=== PATIENT | female | born 1975 | race Two or more races ===

== ENCOUNTER 2019-06-16 10:35 | Observation (INO) | payer SELFPAY ==
[~2019-06-16] VITALS: Ht 165.1 cm; Wt 78.5 kg
[2019-06-16] MEDS ORDERED: PREN-96 PO (12:30)
[2019-06-16] MEDS ORDERED: URSO300C9 PO (12:30)
[2019-06-16 13:57] LABS: Albumin 2.9 g/dL (3.4-5.0); Calcium 9.2 mg/dL (8.5-10.1); Potassium 4.1 mmol/L (3.5-5.1)
[2019-06-16] MEDS ORDERED: LACTATED RINGER'S 1,000 ML IV ONE (14:00)
[2019-06-16 14:02] LABS: BUN/Creatinine Ratio 10.5; Bilirubin, Total 0.4 mg/dL (0.2-1.0); Total Protein 7.4 g/dL (6.4-8.2)
[2019-06-16] MEDS: TERBUTALINE SULFATE 1 MG/ML 1ML VIAL SC SCH ×2 (14:43→15:42)
[2019-06-16] MEDS ORDERED: NIFEdipine 10 MG CAP PO ONE (16:15)
== END 2019-06-16 17:10 | disposition home or self-care (01) | DRG 831 ==
LOC: LDRP 10:35
PROVIDERS: ADMIT Specialist; ATTEND Specialist
DX: O26.613 Liver and biliary tract disorders in pregnancy, third trimester (principal); K83.1 Obstruction of bile duct; Z3A.34 34 weeks gestation of pregnancy
CPT/HCPCS: 36415; 59025; 76818; 80053; 81002; 84112; 96372; G0378; J3105; 96361

== ENCOUNTER 2019-06-18 14:01 | Observation (INO) | payer MEDICAID ==
[~2019-06-18 14:01] MED LIST: PREN-96 PO; URSO300C9 PO
== END 2019-06-18 16:11 | disposition home or self-care (01) | DRG 563 ==
LOC: LDRP 14:01
PROVIDERS: ADMIT Specialist; ATTEND Specialist
DX: O60.03 Preterm labor without delivery, third trimester (principal); K83.1 Obstruction of bile duct; O26.613 Liver and biliary tract disorders in pregnancy, third trimester; O09.523 Supervision of elderly multigravida, third trimester; Z3A.35 35 weeks gestation of pregnancy
CPT/HCPCS: 59025; 76818; 81002; G0378

== ENCOUNTER 2019-06-22 09:17 | Observation (INO) | payer MEDICAID | END 2019-06-22 10:50 | disposition home or self-care (01) | DRG 563 | LOC: LDRP 09:17 | PROVIDERS: ADMIT Obstetrics & Gynecology; ATTEND Obstetrics & Gynecology | DX: O60.03 Preterm labor without delivery, third trimester (principal); O09.523 Supervision of elderly multigravida, third trimester; Z3A.35 35 weeks gestation of pregnancy | CPT/HCPCS: 59025; 76818; 81002; G0378 ==

== ENCOUNTER 2019-06-25 09:51 | Observation (INO) | payer MEDICAID | END 2019-06-25 11:55 | disposition home or self-care (01) | DRG 566 | LOC: LDRP 09:51 | PROVIDERS: ADMIT Obstetrics & Gynecology; ATTEND Obstetrics & Gynecology | DX: O26.613 Liver and biliary tract disorders in pregnancy, third trimester (principal); K83.1 Obstruction of bile duct; O09.523 Supervision of elderly multigravida, third trimester; O60.03 Preterm labor without delivery, third trimester; Z3A.36 36 weeks gestation of pregnancy | CPT/HCPCS: 59025; 76818; 81002; G0378 ==

== ENCOUNTER 2019-07-08 18:32 | Inpatient (IN) | payer MEDICAID ==
[~2019-07-08] VITALS: Ht 165.1 cm; Wt 78.9 kg
[2019-07-08] MEDS ORDERED: LACT. RINGERS/OXYTOCIN 20UNITS 1,000 ML IV SCH (20:33)
[2019-07-08] MEDS ORDERED: METHYLERGONOVINE MALEATE 0.2 MG/ML AMP IM PRN (20:45)
[2019-07-08] MEDS ORDERED: CARBOPROST TROMETHAMINE 250 MCG/1ML VIAL IM PRN (20:45)
[2019-07-08] MEDS ORDERED: WITCH HAZEL-GLYCERIN PAD TOP PRN (20:45)
[2019-07-08] MEDS ORDERED: LIDOCAINE 2%HCL (LOCAL ANESTH.) INJ 20ML MDV ID ONE (20:45)
[2019-07-08] MEDS ORDERED: PHISODERM TOP SOLN 240ML BTL TOP PRN (20:45)
[2019-07-08] MEDS ORDERED: DERMOPLAST 60ML BOTTLE TOP PRN (20:45)
[2019-07-08 21:40] LABS: Basophils # (auto) 0 uL; Basophils % (auto) 0.2 % (0.0-2.0); Eosinophils # (auto) 0.1 uL; Eosinophils % (auto) 0.7 % (0.0-7.0); Hematocrit 38.6 % (36.0-46.0); Hemoglobin 13.3 g/dL (12.2-16.2); Lymphocytes % (auto) 12.5 % (10.0-50.0); Mean Corpuscular Hemoglobin 29.6 pg (28.0-32.0); Mean Corpuscular Hgb Conc. 34.3 g/dL (32.0-36.0); Mean Corpuscular Volume 86.2 fL (80.0-100.0); Monocytes # (auto) 0.7 uL; Monocytes % (auto) 8.8 % (0.0-12.0); Neutrophils # (auto) 6.4 uL; Neutrophils % (auto) 77.8 % (37.0-80.0); Nucleated Red Blood Cells % 0.1 %; Platelet Count (auto) 227 10^3/uL (140-450); Red Blood Cells 4.48 10^6/uL (4.0-5.20); Red Cell Distribution Width 15.9 % (11.8-14.3); White Blood Cell 8.2 10^3/uL (4.4-10.8)
[2019-07-08] MEDS: LACTATED RINGER'S 1,000 ML IV SCH (22:05)
[2019-07-08 22:52] LABS: Urine Bacteria FEW /hpf (None Seen); Urine Blood Negative /uL (Negative); Urine Specific Gravity 1.007 (1.001-1.035); Urine WBC 1 /hpf (0 - 5)
[2019-07-09] MEDS: LACTATED RINGER'S 1,000 ML IV SCH ×2 (02:13→12:46)
[2019-07-09 07:25] LABS: INR 0.93 (0.9-1.15)
[2019-07-09 07:26] LABS: Potassium 3.7 mmol/L (3.5-5.1)
[2019-07-09 07:33] LABS: Albumin 2.6 g/dL (3.4-5.0); BUN/Creatinine Ratio 8.8; Bilirubin, Total 0.5 mg/dL (0.2-1.0); Calcium 8.9 mg/dL (8.5-10.1); Total Protein 6.4 g/dL (6.4-8.2)
[2019-07-09] MEDS ORDERED: NALBUPHINE HCL 10 MG/1ml INJECTION IM PRN (17:45)
[2019-07-09] MEDS ORDERED: PROMETHAZINE HCL 25 MG/ML 1ML IV PRN (17:45)
[2019-07-09] MEDS ORDERED: ACETAMINOPHEN 325 MG TAB PO PRN (18:30)
[2019-07-09] MEDS: IBUPROFEN 600 MG TAB PO PRN (19:04)
[2019-07-09 20:45] VITALS: BP 111/81
[2019-07-09 23:00] VITALS: BP 129/58
[2019-07-10 02:36] VITALS: BP 115/55
[2019-07-10] MEDS: IBUPROFEN 600 MG TAB PO PRN ×2 (02:41→12:18)
[2019-07-10 05:11] LABS: RPR Non Reactive (Non Reactive)
--- NOTE | 2019-07-10 06:30 | NUR ---
Bottle-feeding Education: Patient encouraged to breastfeed. Benefits of and the risk of providing formula to was discussed. Patient verbalized understanding of the benefits and is aware of risk and insists on bottle-feeding. Formula provided and instruction on formula preparation from the [employer] Beginning booklet reviewed with patient.
[2019-07-10 07:15] VITALS: BP 99/51
[2019-07-10 11:10] VITALS: BP 125/64
[2019-07-10 15:10] VITALS: BP 104/56
--- NOTE | 2019-07-10 18:30 | NUR ---
Teaching: Reviewed information in [employer] Beginnings booklet with patient. Discussed benefits of and risks associated with not . Discussed different positions, proper latch, feeding cues, and baby-led . Provided information of medication side effects related to . All questions and concerns addressed at this time. Patient verbalized understanding of information.
[2019-07-10 19:00] VITALS: BP 120/60
--- NOTE | 2019-07-10 19:50 | NUR ---
Discharge order: Spoke with ASHUTOSH Granger and update given, spoke regarding pt discharge. Clarified pt is okay to discharge and follow up with Dr. Durham in two weeks.
--- NOTE | 2019-07-10 20:00 | NUR ---
Discharge: Discharge instructions given as ordered. Pt encouraged to follow up with [employer] as instructed. All questions and concerns addressed. Patient verbalized understanding. Medication reconciliation completed and copy given to patient. Patient encouraged to prepare to depart unit.
--- NOTE | 2019-07-10 21:12 | NUR ---
Discharge: Patient ambulates to vehicle with all personal belongings, accompanied by staff and family member. No distress noted at time of departure, no adverse changes in status since initial assessment.
== END 2019-07-10 22:25 | disposition home or self-care (01) | DRG 560 ==
LOC: LDRP 18:32
PROVIDERS: ADMIT Specialist; ATTEND Specialist
PROC: 10E0XZZ Delivery of Products of Conception, External Approach (ICD-10-PCS; principal; 2019-07-08)
PROC: 0HQ9XZZ Repair Perineum Skin, External Approach (ICD-10-PCS; 2019-07-08)
DX: O26.62 Liver and biliary tract disorders in childbirth (principal); K83.1 Obstruction of bile duct; Z37.0 Single live birth; O99.824 Streptococcus B carrier state complicating childbirth; Z3A.38 38 weeks gestation of pregnancy; O69.81X0 Labor and delivery complicated by cord around neck, without compression, not applicable or unspecified; O70.0 First degree perineal laceration during delivery
CPT/HCPCS: 36415; 59025; 59409; 80053; 81001; 81002; 84112; 85025; 85610; 85730; 86592; 86703; 86762; 86850; 86900; 86901; 87340; 96361; 96372; G0378; J2590